=== PATIENT | female | born 1955 | race Caucasian/White ===

== ENCOUNTER 2019-02-05 01:24 | Outpatient (CLI) | payer MEDICARE, SELFPAY ==
[2019-02-05 10:28] LABS: Anion Gap 5.4 mmol/L (3-11); BUN 25 mg/dL (7-18); CO2 32.6 mmol/L (21.0-32.0); CREATININE 0.92 mg/dL (0.55-1.02); Chloride 101 mmol/L (98-107); Glucose 99 mg/dL (70-100); Potassium 4.1 mmol/L (3.5-5.1); Sodium 139 mmol/L (136-145)
== END 2019-02-05 01:44 ==
PROVIDERS: PCP Student in an Organized Health Care Education/Training Program; Visit Provider Otolaryngology
DX: F45.8 Other somatoform disorders (principal); I10 Essential (primary) hypertension
CPT/HCPCS: 36415; 80048; 84443

== ENCOUNTER 2019-08-28 09:24 | Outpatient (CLI) | payer MEDICARE, MEDICAID, SELFPAY ==
--- NOTE | 2019-08-28 09:11 | DI.RAD_ITS ---
EXAM: XR SHOULDER LT COMPLETE 2+V INDICATION: L shoulder pain, h/o RTC surgery. COMPARISON: LEFT SHOULDER COMPLETE from 09/04/2013 TECHNIQUE: 2D digital imaging was performed. FINDINGS: There are mild degenerative changes seen at the acromioclavicular joint and glenohumeral joint. No a cute fracture or dislocation is seen. Soft tissue calcifications are seen adjacent to the greater tu berosity consistent with calcific tendonitis. The soft tissues are otherwise unremarkable. IMPRESSION: Degenerative changes of the left shoulder.
== END 2019-08-28 09:44 ==
PROVIDERS: PCP Student in an Organized Health Care Education/Training Program; Referring Provider Student in an Organized Health Care Education/Training Program; Visit Provider Student in an Organized Health Care Education/Training Program
DX: M25.512 Pain in left shoulder (principal); M19.012 Primary osteoarthritis, left shoulder; M75.32 Calcific tendinitis of left shoulder; G89.29 Other chronic pain; G56.02 Carpal tunnel syndrome, left upper limb
CPT/HCPCS: 99203; 73030

== ENCOUNTER 2019-10-02 01:28 | Outpatient (CLI) | payer MEDICARE, MEDICAID, SELFPAY ==
--- NOTE | 2019-10-02 08:50 | DI.MRI_ITS ---
EXAM: MR UPPER JOINT LT WO CLINICAL HISTORY: continued left shoulder pain after surgery,m25.512H/O SURGERY, DECREASED RANGE OF MOTION TECHNIQUE: Multiplanar multisequence MRI was performed. COMPARISON: XR SHOULDER LT COMPLETE 2+V from 08/28/2019 FINDINGS: There is no significant spurring of the AC joint or impingement. There is some fluid in the subacrom ial subdeltoid bursa. There is a small joint effusion with some apparent loose bodies seen posterior ly. There are degenerative changes of the glenohumeral joint. There is a subchondral cyst in the gl enoid. There is cartilage thinning extending down to bone. There are degenerative changes of the la scarlet but no gross evidence of a labral tear. There is some thickening of the distal supraspinatus te ndon but no evidence of a full-thickness tear. The infraspinatus, subscapularis and biceps tendons a ppear intact. Muscle atrophy. IMPRESSION: 1. Supraspinatus tendinosis. 2. Joint effusion with loose bodies. 3. Degenerative changes of the glenohumeral joint.
== END 2019-10-02 01:48 ==
PROVIDERS: PCP Student in an Organized Health Care Education/Training Program; Visit Provider Physician Assistant
DX: M25.512 Pain in left shoulder (principal); M25.812 Other specified joint disorders, left shoulder; M75.82 Other shoulder lesions, left shoulder; M25.412 Effusion, left shoulder; M19.012 Primary osteoarthritis, left shoulder
CPT/HCPCS: 73221

== ENCOUNTER → 2019-10-12 09:53 | Outpatient (BNVA) | payer MEDICARE, MEDICAID, SELFPAY | PROVIDERS: PCP Student in an Organized Health Care Education/Training Program; Referring Provider Student in an Organized Health Care Education/Training Program; Visit Provider Student in an Organized Health Care Education/Training Program | DX: M19.012 Primary osteoarthritis, left shoulder (principal); M25.512 Pain in left shoulder; G89.29 Other chronic pain | CPT/HCPCS: 99213 ==

== ENCOUNTER → 2019-12-20 13:32 | Outpatient (BNVA) | payer MEDICARE, MEDICAID, SELFPAY | PROVIDERS: PCP Student in an Organized Health Care Education/Training Program; Referring Provider Student in an Organized Health Care Education/Training Program; Visit Provider Student in an Organized Health Care Education/Training Program | DX: M19.012 Primary osteoarthritis, left shoulder (principal); M67.922 Unspecified disorder of synovium and tendon, left upper arm; M75.32 Calcific tendinitis of left shoulder; M75.42 Impingement syndrome of left shoulder; M75.52 Bursitis of left shoulder | CPT/HCPCS: 99215 ==

== ENCOUNTER 2020-01-10 13:23 | Emergency (ER) | payer MEDICARE, MEDICAID, SELFPAY ==
[2020-01-10] VITALS (12 sets, daily range): BP systolic 97–176; BP diastolic 72–104; PULSE 56–77; RESP 15–16; TEMP 36.4–36.6; O2SAT 92–98
--- NOTE | 2020-01-10 13:45 | DI.RAD_ITS ---
EXAM: XR CHEST 2V PA LATERAL CLINICAL HISTORY: L jaw pain, near syncope yesterday TECHNIQUE: 2D digital imaging was performed. COMPARISON: No exams were available for comparison FINDINGS: The cardiac and mediastinal contours have a normal appearance. The lungs are well inflated and clear . No infiltrate, effusion or pneumothorax is seen. No spine or rib fracture is identified. IMPRESSION: Negative chest x-ray.
[2020-01-10] MEDS: Aspirin 81 MG CHEW 324 MG CH (14:05)
[2020-01-10 14:08] LABS: Abs Immature Grans 0.01 k/cumm (0.0-0.09); Absolute Basophil Count 0.01 k/cumm (0.0-0.2); Absolute Eosinophil Count 0.03 k/cumm (0.0-0.7); Absolute Lymphocyte Count 2.27 k/cumm (1.2-3.4); Absolute Monocyte Count 0.29 k/cumm (0.11-0.7); Absolute Neutrophil Count 3.55 k/cumm (1.2-6.7); Basophils % 0.2; Eosinophils % 0.5; HCT 43.3 % (36.0-46.0); HGB 14.5 g/dL (12.0-15.5); Immature Grans % 0.2 %; Lymphocytes % 36.9; Mean Corp. HGB Concentration 33.5 g/dL (32.0-36.0); Mean Corpuscular Hemoglobin 30.8 pg (27.0-33.0); Mean Corpuscular Volume 91.9 fL (80-95); Mean Platelet Volume 9.8 fL (8.0-11.0); Monocytes % 4.7; Neutrophils % 57.5; Platelet Count 227 x1000/uL (130-400); RBC 4.71 m/cumm (4.00-5.20); RBC Distribution Width 12.7 % (11.7-14.6); White Blood Cell Count 6.16 k/cumm (4.4-10.8)
--- NOTE | 2020-01-10 14:13 | ED.GENADUL_ITS ---
Discharge Plan Disposition Patient Disposition: HOME Condition: Stable Discharge Details Chief Complaint: Nausea/Vomit/Diar Clinical Impression: Near syncope Primary Care Provider: Mari Moctezuma ED Provider: Jameel Hu Home Meds and New Rx's Prescriptions: No Action lisinopril 5 mg tablet 5 mg PO DAILY Qty: 90 RF: 3 pediatric multivitamin [Gummi Bear Multivitamin] 1 EACH tablet,chewable 1 ea PO DAILY RF: 0 calcium-vitamin D3-vitamin K 1 EACH tablet,chewable 1 ea PO DAILY RF: 0 epinephrine [EpiPen 2-Femi] 0.3 MG/0.3 ML auto-injector 0.3 mg IM ONCE Qty: 1 RF: 1 alprazolam 0.5 mg tablet 0.5 mg PO ONCE PRN (Reason: procedural anxiety) Qty: 2 RF: 0 celecoxib 200 mg capsule 200 mg PO BID Qty: 60 RF: 6 Discharge Instructions Instructions: Near Syncope (ED) Additional Instructions: At this time your work-up in the ER, including a rapid cardiac rule out, was unremarkable. Upon discharge you are asymptomatic. I was able to discuss the case both with your primary care provider and our local neurology team. We have set you up with a Holter monitor, your primary care office should be calling you tomorrow for prompt outpatient reevaluation, and you will likely then receive a referral to an appointment for outpatient neurology. Please watch for new or worsening symptoms and return immediately to the ER. Medical Decision Making 64-year-old female presenting to the ER today with what sounded like near syncope yesterday now with a left jaw spasm. She currently appears well, nontoxic. She does present to the ER slightly hypertensive however this was trended in the ER without any intervention and came down nicely. Patient denies any chest pain whatsoever. Currently she denies any jaw spasm to me and besides feeling tired she is otherwise asymptomatic. Given her age, presentation, will give a full dose aspirin and obtain a cardiac work-up. Patient currently has no headache, no neck pain, and is neurologically intact. Patient reports ongoing history of headaches which is being worked up as an outpatient. She reports that her jaw was in a spasm, there is no tearing, ripping, burning sensation in her neck. Based upon her evaluation, low suspicion for dissection. I see no clear indication for advanced imaging of the neck or head. I did discuss this with Dr. Holbrook Initial work-up in the ER is unremarkable. EKG, chest x-ray, laboratory values benign. Patient willing to stay in the ER for a repeat EKG and troponin for a rapid cardiac rule out. She remains neurologically intact and is asymptomatic. In the meantime I will reach out to her primary care provider to discuss safe disposition. I was able to speak with Dr. Moctezuma, who apparently has been working the patient up for atypical headaches, does have concern for possible seizure-like activity given her stool incontinence and would like to speak with our hospitalist team as well as our neurology team to discuss the plan. I am currently awaiting a phone call back from her. In the meantime I was actually able to speak with Dr. Kraus who did not feel as though the patient would require admission or emergent EEG. Given her near syncopal episode she recommended setting her up with a Holter monitor and she would be happy to evaluate her as an outpatient. I was able to set the patient up for a outpatie nt Holter monitor. Given her age and history of hypertension, heart score of 3. Repeat EKG performed at 1619. Reveals sinus bradycardia, ventricular rate of 54. No acute ST elevation or depression. No significant changes previous EKG. Repeat troponin unremarkable, no upward trend. Discussed findings with patient and family. Discussed disposition, primary care provider should be reaching out to them tomorrow for prompt outpatient reevaluation. They were instructed to return immediately to the ER for new or evolving symptoms. Upon discharge patient is asymptomatic, neurologically intact, and has no additional questions or concerns Medical Records Medical records reviewed: Yes I reviewed the patient's medical records. Imaging Data Radiologic Study: Attestation: I personally reviewed and interpreted this imaging study as follows: Imaging: X-Ray (Chest x-ray, read by me as negative) Lab Data Lab results reviewed: Yes I reviewed the patient's lab results. Lab results narrative: Laboratory Tests Range/Units 01/10/20 01/10/20 13:40 13:40 WBC (4.4-10.8) k/cumm 6.16 RBC (4.00-5.20) m/cumm 4.71 Hgb (12.0-15.5) g/dL 14.5 Hct (36.0-46.0) % 43.3 MCV (80-95) fL 91.9 MCH (27.0-33.0) pg 30.8 MCHC (32.0-36.0) g/dL 33.5 RDW (11.7-14.6) % 12.7 Plt Count (130-400) x1000/uL 227 MPV (8.0-11.0) fL 9.8 Immature Gran % % 0.2 Neutrophils % 57.5 Lymphocytes % 36.9 Monocytes % 4.7 Eosinophils % 0.5 Basophils % 0.2 Absolute Neutrophils (1.2-6.7) k/cumm 3.55 Absolute Lymphocytes (1.2-3.4) k/cumm 2.27 Absolute Monocytes (0.11-0.7) k/cumm 0.29 Absolute Eosinophils (0.0-0.7) k/cumm 0.03 Absolute Basophils (0.0-0.2) k/cumm 0.01 Sodium (136-145) mmol/L 142 Potassium (3.5-5.1) mmol/L 3.5 Chloride (98-107) mmol/L 102 Carbon Dioxide (21.0-32.0) mmol/L 29.7 Anion Gap (3-11) mmol/L 10.3 BUN (7-18) mg/dL 14 Creatinine (0.55-1.02) mg/dL 0.94 Estimated GFR/1.73 m2 (mL/min/1.73m2) 59.58 Glucose (74-106) mg/dL 109 H Calcium (8.5-10.1) mg/dL 9.1 Magnesium (1.8-2.4) mg/dL 2.0 Total Bilirubin (0.2-1.0) mg/dL 0.6 AST (15-37) U/L 22 ALT (14-59) U/L 31 Alkaline Phosphatase (46-116) U/L 67 Troponin I (<0.06) ng/Ml < 0.05 NT-Pro-B Natriuret Pep (<300) pg/mL 99 Total Protein (6.4-8.2) g/dL 7.8 Albumin (3.4-5.0) g/dL 4.1 Labs: Repeat EKG less than 0.05 ECG Data Attestation: I personally reviewed and interpreted this ECG (s) as follows: Prior ECG tracings: available for review Interpretation: Sinus rhythm, ventricular rate of 67. No acute ST elevation or depression. Reviewed with Dr. Holbrook. Also reviewed to previous EKG on 08-23-15, no significant changes. HPI General Mode of arrival: ambulatory . Date/Time Provider Initiated Documentation: 01/10/20 13:25 . Limitations to Documentation: no limitations . Information obtained by: patient and family . HPI Narrative: 64-year-old female presents to the ER today for evaluation of near syncope yesterday and today with left-sided jaw pain. She has a history of hypertension, chronic left shoulder pain, but is otherwise healthy. She got up yesterday per her usual routine, and upon getting up after drinking coffee to wave goodbye to her she felt what she describes as severe diaphoresis, generalized weakness, falling to the floor. She reports at that time she was incontinent of stool. She denies any true loss of consciousness or any injury from the fall. She reports that at that time she was too weak to stand so she crawled to the bathroom. During this time she felt dizzy although not described like the room was spinning, more like if she was able to stand she may fall over. She also reports nausea at that time with 2 episodes of vomiting. She had no pain whatsoever. Subsequently she went to bed slept most of the day and then upon waking felt drained of all of her energy. She reports several episodes of loose stool but no true diarrhea. Today around 1230 she felt as though she was having a spasm in her left jaw and that is what was the final factor to make her come to the ER. She does not report steady pain or spasm in her left jaw and movement does not make any difference. She has chronic left shoulder pain which is unchanged. Upon further investigation she does report a subtle heaviness to her left arm and maybe even slight tingling in her hand, specifically her fourth and fifth digit. Patient reports a history of semi-frequent, mild headaches and she has had 1 since yesterday. She denies any visual changes, posterior neck pain, chest pain, shortness of breath, abdominal pain, dysuria, hematuria, pain or swelling in her legs. Related Data Home Medications Medication Instructions Recorded Confirmed calcium-vitamin D3-vitamin K 1 ea PO DAILY tab.chew 09/07/13 01/10/20 pediatric multivitamin [Gummi Bear 1 ea PO DAILY tab.chew 09/07/13 01/10/20 Multivitamin] epinephrine [Epipen 2-Femi] 0.3 mg IM ONCE #1 cartridge 01/18/18 01/10/20 lisinopril 5 mg tablet 5 mg PO DAILY #90 tab 02/03/19 01/10/20 alprazolam 0.5 mg tablet 0.5 mg PO ONCE PRN #2 tab 10/18/19 01/10/20 celecoxib 200 mg capsule 200 mg PO BID #60 cap 11/01/19 01/10/20 Previous Rx's Medication Instructions Recorded epinephrine [Epipen 2-Femi] 0.3 mg IM ONCE #1 cartridge 01/18/18 lisinopril 5 mg tablet 5 mg PO DAILY #90 tab 02/03/19 alprazolam 0.5 mg tablet 0.5 mg PO ONCE PRN #2 tab 10/18/19 celecoxib 200 mg capsule 200 mg PO BID #60 cap 11/01/19 Allergies Allergy/AdvReac Type Severity Reaction Status Date / Time codeine Allergy Severe Facial & Unverified 01/10/20 13:33 Oral edema kiwi Allergy Severe Anaphylaxsi Unverified 01/10/20 13:33 s morphine Allergy Severe Edema, Unverified 01/10/20 13:33 Tremor strawberry Allergy Severe Facial & Unverified 01/10/20 13:33 Oral Edema Sulfa (Sulfonamide Allergy Severe Itchy, Unverified 01/10/20 13:33 Antibiotics) facial edema Iodine and Iodide Containing Allergy Unknown Unverified 01/10/20 13:33 Produc Penicillins Allergy Unknown Unverified 01/10/20 13:33 procaine HCl [From Novocain] Allergy Unknown Unverified 01/10/20 13:33 barium sulfate Allergy Unverified 01/10/20 13:33 venom-honey bee Allergy anaphylactic Unverified 01/10/20 13:33 reaction gabapentin AdvReac Severe VOMITING Unverified 01/10/20 13:33 AND SHAKINESS ibuprofen [From Motrin] AdvReac Mild intolerant Unverified 01/10/20 13:33 to 800 mg dosing lobster Allergy Severe Facial \T\ Uncoded 01/10/20 13:33 Oral edema salmon Allergy Severe Swelling/Ed Uncoded 01/10/20 13:33 sydni cheetah Allergy Unknown Anaphylaxsi Uncoded 01/10/20 13:33 s egg albumin AdvReac Severe Uncoded 01/10/20 13:33 General Stated Complaint: Nausea/Vomit/Diar MOR: 3 Review of Systems Constitutional Constitutional: Denies chills, Reports fatigue, Denies fever(s) and Reports headache(s) Eyes Eyes: Denies blurry vision and Denies other visual disturbances ENT Ears, Nose, Mouth, and Throat: Reports dizziness and Reports headache(s) Cardiovascular Cardiovascular: Denies chest pain, Denies leg edema and Denies dyspnea Respiratory Respiratory: Denies cough and Denies dyspnea Gastrointestinal Gastrointestinal: Denies abdominal pain, Reports nausea and Reports vomiting Genitourinary Genitourinary: Denies urinary frequency and Denies dysuria Musculoskeletal Musculoskeletal: Reports back pain (Mild left lower thoracic) and Denies numbness Integumentary/Breasts Skin/Breast: Denies rash Neurologic Neurologic: Reports dizziness, Reports headache(s) and Denies numbness Endocrine Endocrine: Reports fatigue [facility] Medical History DJD (degenerative joint disease) of cervical spine (Acute 10/16/14) Mild cord compression on MRI Fatigue (Acute 08/10/13) FH: breast cancer (Acute 08/10/13) Hand joint pain (Acute 10/03/13) OA vs. RA; hand x-rays 09/2013 Rheum consult 01/18/2014[place] [facility] [place] Inflam erosive arthritis vs. Psoriatic arthritis Irritable colon (Acute 10/03/13) Diarrhea-predominant; stress-induced Left shoulder pain (Acute) S/P arthroscopic rotator cuff [place] [facility] [place] GI bleed (Acute) Surgical History EGD/COLONOSCOPY (09/27/15) DR.CHRIS WILLIS Status post left rotator cuff repair (Acute ~11/2014) Family History Mother No problems noted. Father No problems noted. Social History Smoking/Tobacco Use Status: Former Tobacco Use Alcohol Intake: never Drug use: Never Substance use type: does not use Housing: house Current gender identity: female What type of physical activity do you participate in: occasional exercise and other Details: shoveling Exam Const General: cooperative, healthy appearing, comfortable and no acute distress Orientation: alert and awake HENMT Head: normal to inspection, normocephalic and atraumatic Mouth: moist mucous membranes Eyes General: appearance normal, both eyes and all related structures Conjunctivae: conjunctivae normal Sclera: sclerae normal Pupils: PERRL EOM: EOM intact bilaterally Direct ophthalmoscopy: normal light reflex Neck Neck: normal visual inspection, full ROM, no lymphadenopathy, no meningeal signs, trachea midline, supple and tender (There is mild on the left SCM discomfort to palpation withoout spasm) Lymphatic: no lymphadenopathy noted Resp Effort & Inspection: normal respiratory effort Auscultation: clear to auscultation bilaterally Cardio Rate: regular rate Rhythm: regular rhythm Pulses: normal peripheral pulses GI Inspection: normal to inspection Palpation: soft and nontender Back/Spine/Pelvis Back: no CVA tenderness Cervical Spine: cervical ROM normal and No cervical muscular tenderness Thoracic/Lumbar Spine: thoracic spinal tenderness (Inferior, left-sided, muscular in nature) Skin General skin exam: no rashes or lesions noted Neuro General: alert, awake and oriented x3 Cranial Nerves: CN's II-XI intact bilaterally Cognition: normal cognition Speech: speech normal Gait: normal gait Motor: muscle tone normal throughout Sensory Exam: no sensory deficits noted Extrem General: normal to inspection Psych Appearance: grossly normal Mental Status: mental status grossly normal Course Vital Signs Vital signs: Vital Signs Temperature 36.4 C L 01/10/20 13:29 Pulse 77 01/10/20 13:29 Respiratory Rate 15 01/10/20 13:29 Blood Pressure 176/104 H 01/10/20 13:29 Pulse Oximetry 96 01/10/20 13:29 Temperature 36.4 C L 01/10/20 13:29 Temperature Source Skin 01/10/20 13:29 Pulse 77 01/10/20 13:29 Respiratory Rate 15 01/10/20 13:29 Respiratory Effort Non-Labored 01/10/20 13:29 Blood Pressure 176/104 H 01/10/20 13:29 Pulse Oximetry 96 01/10/20 13:29 Oxygen Delivery Method Room Air 01/10/20 13:29 Oxygen Flow Rate 0 01/10/20 13:29 Pain Level 0 01/10/20 13:29
[2020-01-10 14:30] LABS: ALT 31 U/L (14-59); AST 22 U/L (15-37); Albumin 4.1 g/dL (3.4-5.0); Alkaline Phosphatase 67 U/L (46-116); Anion Gap 10.3 mmol/L (3-11); BUN 14 mg/dL (7-18); Bilirubin, Total 0.6 mg/dL (0.2-1.0); CO2 29.7 mmol/L (21.0-32.0); CREATININE 0.94 mg/dL (0.55-1.02); Calcium 9.1 mg/dL (8.5-10.1); Chloride 102 mmol/L (98-107); Estimated GFR 59.58 (mL/min/1.73m2); Glucose 109 mg/dL (74-106); Potassium 3.5 mmol/L (3.5-5.1); Sodium 142 mmol/L (136-145); Total Protein 7.8 g/dL (6.4-8.2)
[2020-01-10 14:43] LABS: Troponin I < 0.05 ng/Ml (<0.06)
[2020-01-10 15:03] LABS: NT-proBNP 99 pg/mL (<300)
[2020-01-10 16:42] LABS: Troponin I < 0.05 ng/Ml (<0.06)
== END 2020-01-10 17:10 | disposition home or self-care (01) ==
PROVIDERS: Emergency Provider Physician Assistant; PCP Student in an Organized Health Care Education/Training Program
DX: R55 Syncope and collapse (principal); R68.84 Jaw pain; R15.9 Full incontinence of feces; R53.1 Weakness; R11.2 Nausea with vomiting, unspecified; I10 Essential (primary) hypertension
CPT/HCPCS: 36415; 80053; 93005; 99285; 71046; 83735; 83880; 84484; 85025; 93010; 93225

== ENCOUNTER 2020-01-15 14:50 | Outpatient (CLI) | payer MEDICARE, MEDICAID, SELFPAY ==
--- NOTE | 2020-01-16 08:42 | W.HOLTRPT ---
Date of service: 01/16/20 Time of Service: 08:42 Holter Monitor Report Holter Monitor Note: Patient was monitored for a period of 2 days 1 hour and 17 minutes for a diagnosis of near syncope The rhythm throughout was sinus. Mean heart rate was 62 bpm. Minimum heart rate was 48 bpm and maximum heart rate 113 bpm. There was no bradycardia There were very rare ventricular ectopic beats There were very rare atrial premature beats There were 9 runs of premature atrial contractions. The longest of these was 13 beats in length. These were asymptomatic Patient triggers correlated to atrial and ventricular ectopic beats
== END 2020-01-15 15:10 ==
PROVIDERS: PCP Student in an Organized Health Care Education/Training Program; Visit Provider Student in an Organized Health Care Education/Training Program
DX: R55 Syncope and collapse (principal); I49.3 Ventricular premature depolarization; I49.1 Atrial premature depolarization
CPT/HCPCS: 93226

== ENCOUNTER 2020-01-16 02:08 | Outpatient (CLI) | payer MEDICARE, MEDICAID, SELFPAY ==
--- NOTE | 2020-01-16 14:45 | DI.CT_ITS ---
EXAM: CT UPPER EXTREMITY LT WO CLINICAL HISTORY: LEFT SHOULDER ARTHRITIS WITH GLENOID BONE LOSS,M75.32,M19.012, PRIMARY OA, CALCIFI C TENDINITIS COMPARISON: No exams were available for comparison FINDINGS: At the glenohumeral joint, there is joint space narrowing. A small osteophyte arises from the kanwal l head. Subchondral cyst and sclerosis is present in the glenoid. There are calcifications in the s oft tissues adjacent to the humeral head consistent with calcific tendinitis. The soft tissues are u nremarkable. IMPRESSION: Degenerative changes of the left shoulder.
== END 2020-01-16 02:28 ==
PROVIDERS: PCP Student in an Organized Health Care Education/Training Program; Visit Provider Student in an Organized Health Care Education/Training Program
DX: M25.512 Pain in left shoulder (principal); M75.32 Calcific tendinitis of left shoulder; M19.012 Primary osteoarthritis, left shoulder; M85.412 Solitary bone cyst, left shoulder; R55 Syncope and collapse; I49.3 Ventricular premature depolarization; I49.1 Atrial premature depolarization
CPT/HCPCS: 93227; 73200

== ENCOUNTER 2020-01-24 02:20 | Outpatient (CLI) | payer MEDICARE, MEDICAID, SELFPAY ==
--- NOTE | 2020-02-09 08:23 | W.ZIOMONITOR ---
Date of service: 02/09/20 Time of Service: 08:24 ZIO Patch Storage Architect Note: This is a 2-week ZIO patch ordered for the indication of syncope and collapse. The predominant underlying rhythm was sinus rhythm. ?There were 32 episodes of supraventricular tachycardia with the longest lasting 13 beats. The average heart rate during these episodes was 110 bpm. ?There were rare (less than 1%) isolated ventricular ectopic beats. There were rare episodes of trigeminy with the longest lasting 8 seconds. ?There were no episodes of atrial fibrillation, no pauses greater than 3 seconds and no evidence of high degree heart block. ?Patient triggered events were associated with supraventricular tachycardia, sinus rhythm as well as single ventricular ectopic beats
== END 2020-01-24 02:40 ==
PROVIDERS: PCP Student in an Organized Health Care Education/Training Program; Visit Provider Student in an Organized Health Care Education/Training Program
DX: R55 Syncope and collapse (principal); I49.1 Atrial premature depolarization; I49.3 Ventricular premature depolarization
CPT/HCPCS: 0296T

== ENCOUNTER → 2020-02-06 10:33 | Outpatient (BNVA) | payer MEDICARE, MEDICAID, SELFPAY | PROVIDERS: PCP Student in an Organized Health Care Education/Training Program; Referring Provider Student in an Organized Health Care Education/Training Program; Visit Provider Student in an Organized Health Care Education/Training Program | DX: M85.612 Other cyst of bone, left shoulder (principal); M75.42 Impingement syndrome of left shoulder; M75.52 Bursitis of left shoulder; M19.012 Primary osteoarthritis, left shoulder; M67.922 Unspecified disorder of synovium and tendon, left upper arm; M75.32 Calcific tendinitis of left shoulder | CPT/HCPCS: 99214 ==

== ENCOUNTER 2020-02-09 08:23 | Outpatient (CLI) | payer MEDICARE, SELFPAY | END 2020-02-09 08:43 | PROVIDERS: PCP Student in an Organized Health Care Education/Training Program; Referring Provider Student in an Organized Health Care Education/Training Program; Visit Provider Internal Medicine Cardiovascular Disease | DX: R55 Syncope and collapse (principal); I49.1 Atrial premature depolarization; I49.3 Ventricular premature depolarization | CPT/HCPCS: 0298T ==

== ENCOUNTER → 2020-02-16 13:00 | Outpatient (BNVA) | payer MEDICARE, MEDICAID, SELFPAY | PROVIDERS: PCP Student in an Organized Health Care Education/Training Program; Referring Provider Student in an Organized Health Care Education/Training Program; Visit Provider Internal Medicine Cardiovascular Disease | DX: R55 Syncope and collapse (principal); I49.1 Atrial premature depolarization; I47.1 Supraventricular tachycardia | CPT/HCPCS: 99203; 99213 ==

== ENCOUNTER → 2020-04-08 10:58 | Outpatient (BNVA) | payer MEDICARE, MEDICAID, SELFPAY | PROVIDERS: PCP Student in an Organized Health Care Education/Training Program; Referring Provider Student in an Organized Health Care Education/Training Program; Visit Provider Student in an Organized Health Care Education/Training Program | DX: M75.42 Impingement syndrome of left shoulder (principal); M75.52 Bursitis of left shoulder; M19.012 Primary osteoarthritis, left shoulder; M67.922 Unspecified disorder of synovium and tendon, left upper arm; M75.32 Calcific tendinitis of left shoulder | CPT/HCPCS: 99215 ==

== ENCOUNTER 2020-04-25 02:05 | Outpatient (CLI) | payer MEDICARE, MEDICAID, SELFPAY ==
--- NOTE | 2020-04-25 07:34 | DI.US_ITS ---
APPROVED REPORT EXAM: Comprehensive 2D, Doppler, and color-flow Echocardiogram Patient Location: Out-Patient Education Professor: Liz Pena RDCS (AE) Indications: SVT, Syncope Other Information Study Quality: Fair Conclusion Left Ventricle : The left ventricle is normal size. The left ventricular systolic function is normal. The left ventricular ejection fraction is within the normal range. There is normal left ventricular wall thickness. There is normal LV segmental wall motion. The left ventricular diastolic function is normal. LVEF is 55%. Right Ventricle : The right ventricle is normal size. The right ventricular systolic function is norm al. The RVSP is 12mmHg. Atria : The left atrium size is normal. The right atrium size is normal. Valves: There are no hemodynamically significant valvular lesions. Please see remainder of study for additional details. Compared to echocardiogram dated 04/19/2015: There is no significant change. Wall motion Left Ventricle The left ventricle is normal size. The left ventricular systolic function is normal. The left ventric ular ejection fraction is within the normal range. There is normal left ventricular wall thickness. T here is normal LV segmental wall motion. The left ventricular diastolic function is normal. There is no ventricular septal defect visualized. LVEF is 55%. Right Ventricle The right ventricle is normal size. The right ventricular systolic function is normal. The RVSP is 12 .3mmHg. Atria The left atrium size is normal. The right atrium size is normal. The interatrial septum is intact wit h no evidence for an atrial septal defect. Aortic Valve Aortic valve is trileaflet. The Aortic valve is sclerotic. There is no aortic valvular stenosis. No a ortic regurgitation is present. Mitral Valve There is mitral annular calcification. No evidence of mitral valve stenosis. Trace to mild mitral reg urgitation. Tricuspid Valve The tricuspid valve is normal in structure. There is no tricuspid valve stenosis. Trace tricuspid reg urgitation. Pulmonic Valve The pulmonary valve is normal in structure. There is no pulmonic valvular stenosis. Trace pulmonic re gurgitation. Great Vessels The aortic root is normal in size. The ascending aorta is normal in size. Aortic arch is normal in ca liber. IVC is normal in size and collapses >50% with inspiration. Pericardium There is no pericardial effusion. There is no pleural effusion. 2D Dimensions IVSD d PLAX 0.97 cm F: 0.6-1.0 LV Vol A2C d MOD 86.0 mL LVPW d PLAX 0.98 cm F: 0.6 - 1.0 LV Vol A4C d MOD 76.7 mL LVID d PLAX 4.41 cm F: 3.8 - 5.2 LA vol/ BSA A2C s A-L 32.5 mL/m2 LVDs 2.90 cm F: 2.2 - 3.5 LA vol/ BSA A4C s A-L 27.8 mL/m2 Ao Root d 2.84 cm F: 2.7 - 3.3 LA Vol/ BSA Biplane s A-L 30.1 mL/m2 RA Area A4C 14.08 cm2 LA Area A4C s MOD 18.11 cm2 RA Vol/ BSA A4C s A-L 18.5 mL/m2 LA Area A2C s MOD 19.54 cm2 Ao Asc Diam d 3.20 cm F: 2.3 - 3.1 LV EF A4C MOD 58.5 % LV EF Teichholz 62.5 % LV EF A2C MOD 54.9 % LVEF (Jenkins's) 57.92 % F: 54 - 74 LV EF Biplane MOD 57.9 % LV Volume 65.09 mL F: 46 - 106 SV 48.90 mL LV Volume Index 35.37 mL/m2 F: 29 - 61 SV Index 26.49 mL/m2 LV Vol Biplane MOD 84.4 mL FS 33.55 % M-Mode TAPSE 3.09 cm (M/F) >1.7 LV Diastology MV E' medial 0.099 (>0.07 m/s) E/A Ratio 1.1 LV E/e MED 8.35 (<14) MV E Vmax 0.83 (0.4-1.3 m/s) MV E' lateral 0.132 (>0.1 m/s) MV A Vmax 0.75 (0.4-1.3 m/s) LV E/e LAT 6.25 (<14) MV E/A Ratio 1.05 MV E/E' medial 8.40 MV E/E' lateral 6.30 Aortic Valve LVOT Vmax 1.25 m/s LVOT Mean Geo. 0.82 m/s LVOT Peak Grad 6.2 mmHg LVOT Mean Grad 3.2 mmHg LVOT VTI 0.300 m AoV Vmax 1.52 m/s Velocity Ratio 0.82 AoV Mean Geo. 1.06 m/s AoV Peak Grad 9.2 mmHg AoV Mean Grad 5.1 mmHg AoV VTI 0.330 m Mitral Valve MV DT 207 (160-240 msec) MV PHT 60 msec MV Area PHT 3.66 cm2 Pulmonary Valve PV Vmax 0.92 (0.5-1.5 m/s) RVOT Peak Gr. 1.09 mmHg PV Peak Grad 3.4 mmHg RVOT Mean Gr. 0.45 mmHg PV Mean Grad 1.8 mmHg RVOT VTI 0.090 m PV VTI 0.207 m RVOT Vmax 0.52 m/s Tricuspid Valve TR Peak Grad 9.3 mmHg TR Vmax 1.53 m/s RA Pressure 3.00 mmHg RVSP (TR) 12.3 mmHg
== END 2020-04-25 02:25 ==
PROVIDERS: PCP Student in an Organized Health Care Education/Training Program; Visit Provider Internal Medicine Cardiovascular Disease
DX: I47.1 Supraventricular tachycardia (principal); R55 Syncope and collapse; I10 Essential (primary) hypertension
CPT/HCPCS: 93306

== ENCOUNTER 2020-04-30 08:07 | Outpatient (CLI) | payer MEDICARE, SELFPAY ==
[2020-05-01 03:23] LABS: COVID-19 RT-PCR UVMMC Result Negative (Negative)
== END 2020-04-30 08:27 ==
PROVIDERS: PCP Student in an Organized Health Care Education/Training Program; Visit Provider Student in an Organized Health Care Education/Training Program
DX: Z11.59 Encounter for screening for other viral diseases (principal)
CPT/HCPCS: U0003

== ENCOUNTER 2020-05-03 07:40 | Day surgery (SDC) | payer MEDICARE, MEDICAID, SELFPAY ==
[2020-05-03] VITALS (8 sets, daily range): BP systolic 111–145; BP diastolic 67–79; PULSE 61–103; RESP 17–21; TEMP 36.4–36.7; O2SAT 94–97
[2020-05-03] MEDS: Lactated Ringers 1,000 ML 100 ML IV (08:17)
--- NOTE | 2020-05-03 10:00 | DI.RAD_ITS ---
EXAM: XR SHOULDER LT 1V XR SHOULDER LT 1V CLINICAL HISTORY: LEFT SHOULDER ARTHRITIS TECHNIQUE: C-arm fluoroscopy was utilized by Dr. Booker during shoulder arthroscopy. COMPARISON: No exams were available for comparison FINDINGS: Please see Dr. Booker's procedure note. Fluoro time: 45.7 seconds.
--- NOTE | 2020-05-03 10:11 | W.PM.DSUDISC ---
Discharge Plan Disposition Patient Disposition: HOME Condition: Stable Discharge Details Reason For Visit: Left shoulder surgery Attending Provider: Cullen Booker Primary Care Provider: Mari Moctezuma Home Meds and New Rx's Prescriptions: New aspirin 81 mg tablet,delayed release (DR/EC) 81 mg PO DAILY 14 Days Qty: 14 RF: 0 ondansetron 4 mg tablet,disintegrating 4 mg PO Q6H PRN (Reason: nausea or vomiting) Qty: 5 RF: 0 oxycodone 5 mg tablet 5 - 10 mg PO Q4H PRN (Reason: moderate to severe pain) Qty: 22 RF: 0 celecoxib 200 mg capsule 200 mg PO DAILY PRN (Reason: pain) Qty: 90 RF: 0 Continued lisinopril 5 mg tablet 5 mg PO DAILY Qty: 90 RF: 3 epinephrine [EpiPen 2-Femi] 0.3 mg/0.3 mL auto-injector 0.3 mg IM ONCE Qty: 1 RF: 1 celecoxib 200 mg capsule 200 mg PO BID Qty: 60 RF: 6 Discharge Instructions Additional Instructions: Surgery: Revision shoulder arthroscopy with extensive debridement, subacromial decompression, distal clavicle excision, biceps tenodesis, and bone cyst drilling Activity: You should gradually increase range of motion motion and use of your shoulder. Please perform daily stretching exercises. You may use your shoulder for all regular activities. Avoid heavy lifting, reaching overhead, and lifting away from body for approximately 6 to 8 weeks. You may use the sling whenever you are out of the house for a few weeks. You may have to adjust the abduction pillow or remove it for comfort. At home it is best to remove the sling and rest the arm on a pillow at your side or support the operative side with your other hand. You may allow the arm to dangle at your side. A physical therapy prescription will be provided separately today. Prescriptions: Aspirin 81 mg take 1 daily to prevent a blood clot for 2 weeks Celecoxib 200 mg take 1 every day with a meal as needed for moderate pain Oxycodone 5 mg take 1-2 every 4-6 hours as needed for severe pain Ondansetron (Zofran) 4 mg take 1 orally dissolving tablet every 6 hours as needed for nausea or vomiting You may use [id number] Tylenol (acetaminophen) as needed for mild pain. These pain medications may be taken all at once or in different combinations as needed. Also, recommend Colace (docusate) as a stool softener as surgery and pain medicine cause constipation. Dressings: Leave dressing in place for 2-3 days. May then remove and leave open to air or cover incisions with Band-Aids. May shower after 5 days. Follow-up: 10-[address] Booker Please call the office during business hours with any questions or concerns. Let us know right away if you develop any redness, drainage, fevers, chest pain, or trouble breathing. Do not drink alcohol or drive for at least 24 hours after anesthesia. Referrals: Cullen Booker MD [ [facility] STAFF PHYSICIAN] - Discharge Orders Discharge Orders: Discharge Order (Routine); Ordered 05/03/20 Ordered By: Cullen Booker DS: Diagnosis Discharge Diagnosis (1) Calcific tendinitis of left shoulder: Status: Acute (2) Tendinopathy of left biceps: Status: Acute (3) Arthrosis of left acromioclavicular joint: Status: Acute (4) Bursitis of left shoulder: Status: Acute (5) Impingement syndrome of left shoulder: Status: Acute
--- NOTE | 2020-05-03 10:15 | ROE_ITS ---
Date of service: 05/03/20 Time of Service: 12:00 Operative Note Operative Note DATE OF PROCEDURE: 05/03/20 PRE-OP DIAGNOSIS: Left: 1. Calcific tendinitis failed prior supraspinatus debridement and repair 2. LHB tendinopathy failed prior arthroscopic biceps tenodesis 3. AC joint arthritis failed prior open distal clavicle excision 4. Bursitis 5. Impingement 6. Glenoid subchondral bone cyst POST-OP DIAGNOSIS: same PROCEDURE: Left: 1. Extensive debridement, CPT# 38768. This involved using arthroscopic hand instruments, power instruments, and radiofrequency instruments to remove loose bodies from within the glenohumeral joint and axillary pouch, debride areas of labral tearing, synovitis within the glenohumeral joint anteriorly, superiorly and posteriorly, release thickened MGHL, smooth inferior humeral head bone spur, and debride chondromalacia about the bicipital groove and debride loose chondral fragments from the humeral head and glenoid. 2. Revision subacromial decompression with partial acromioplasty, CPT# 96964. This involved using arthroscopic power instruments and a radiofrequency wand to complete a bursectomy and remove residual bone spurs and irregularities on the undersurface of the acromion. 3. Revision arthroscopic biceps tenodesis to open biceps tenodesis, CPT# 41713. This involved releasing a previously done arthroscopic biceps tenodesis and reattaching the long head of the biceps tendon to the proximal humerus in the sub-pectoral area of the bicipital groove at the correct tension. 4. Revision open distal clavicle excision, CPT# 92723. This involved removing residual distal clavicle bone spurs that were engaging on the acromion and prominent beneath the skin. 5. Percutaneous drilling glenoid bone cyst The assistant professor sculpture was medically required in order to help assist in techniques above, which require positioning the arm, holding the arthroscope, and manipulating 2 to 4 instruments and sutures at the same time. This cannot be done without the help of an experienced assistant professor sculpture. SURGEON: Cullen Booker PIN MACHINE TENDER: Iram Hernandez ANESTHESIA: GETA, regional and local ESTIMATED BLOOD LOSS: 15 PATHOLOGY: none sent COMPLICATIONS: None Patient was transported to: PACU Patient's condition: stable Implants: Arthrex: Unicortical Proximal Biceps Tenodesis Button Indications: The patient was diagnosed with the above conditions and appropriately indicated for surgical intervention. Please see complete medical record for details. Findings: Exam under anesthesia: Symmetrically mildly limited range of motion of 145 degree forward flexion and 45 degree external rotation Glenohumeral joint: Extensive synovitis, degenerative labral tearing, and chondromalacia grade 2-3 throughout anteriorly, superiorly, posteriorly and the majority of the humeral head and glenoid vault. Most significant cartilage wear grade 3 fissuring about the bicipital groove and central glenoid. Superior capsular disruption above the superior labrum. No intra-articular long head of the biceps tendon, but unusual remnant in the groove. Small inferior humeral head goat's smith osteophyte. Numerous loose bodies in the glenohumeral joint and axillary pouch presumably chondral fragments. Thickened MGHL ligament. Minor anterior supraspinatus articular sided fraying. Largely intact articular rotator cuff however calcium deposition visualized on the undersurface of supraspinatus and infraspinatus. Could not identify previous biceps tendon anchor junction with 30 degree or 70 degree scope from anterior or posterior portals. Subacromial space: Moderate bursitis. Residual undersurface acromion irregularity and anterior bone spurs Significant residual calcific tendinitis thin layer on top of large area of the supraspinatus. Significant supraspinatus bursal fraying but no nick bursal rotator cuff tear. Prior side to side repair suture intact and tendon healed. Procedure Description: In the operating room, general anesthesia was induced. Bilateral shoulders were examined. The patient was positioned in the beachchair position. All bony prominences were well-padded. Preoperative antibiotics were administered. The shoulder was prepped and draped in the usual sterile fashion. The correct patient, procedure, and side of the procedure were all verified prior to incision. Starting through the prior posterior portal a standard complete diagnostic arthroscopy was performed of the glenohumeral joint including inspection of the long head of the biceps, anterior and superior labrum, subscapularis tendon, supraspinatus and infraspinatus tendons, and axillary recess. The glenoid and humeral head cartilage as well as the posterior labrum were inspected from a prior anterior viewing portal. Significant findings and interventions noted above. In addition, a posterior lateral portal was made under direct visualization and a half pipe slide was maintained inferiorly to protect the axillary nerve. Shaver was brought in this border and while viewing from posteriorly the axillary pouch loose bodies were removed. The arm was brought into extension, external rotation and internal rotation and there was a mild inferior humeral head goats smith type osteophyte. This was smoothed and removed using the shaver again while protecting the axillary nerve with a sled. Starting through the posterior portal, the arthroscope was directed into the s ubacromial space. A prior lateral 50 yard line lateral portal was created. A combination of power instruments and a radiofrequency ablator were used to debride bursitis anteriorly, posteriorly, and laterally as well as expose and smooth bone spurring on the undersurface of the acromion. The coracoacromial ligament was partially released. The bursectomy including removal of residual calcium debris and bursal sided rotator cuff fraying was completed viewing laterally and working from posteriorly and the rotator cuff was thoroughly inspected with findings noted above. The shoulder was drained of arthroscopic fluid. Previous transverse distal clavicle incision was used to approach distal clavicle. Full-thickness skin and subcutaneous tissue flaps were used and raised for the planned mobilizing soft tissues for better distal clavicle coverage. The fascia and superior capsule were found to be intact. There was palpable prominence on the end of the clavicle, slightly medially, and po steriorly. Longitudinal full-thickness approach with knife Bovie cautery and elevators was made exposing the distal clavicle. There was engaging bone most posteriorly. Using a combination of rasps and files the distal clavicle was smoothed and the posterior engaging bone removed. There were no more palpable prominences. The wound was copiously irrigated with normal saline. The fascia was meticulously closed with 0 Vicryl in [id number]-[id number]-tqrug fashion. There was good tissue quality. The wound was irrigated again. Deep tissues that were previously mobilized were closed using 2-0 Monocryl in a buried interrupted fashion in an attempt to improve soft tissue coverage over the distal clavicle. There was good soft tissue coverage. Subcutaneous tissues were closed using 2-0 Monocryl in a buried and fashion. Skin was closed using 3-0 Monocryl in a buried subcuticular running fashion. 10 cc of 0.5% bupivacaine with epinephrine was infiltrated about a 2 to 3 cm longitudinal incision at the inferior margin of the pectoralis major localized over the long head of the biceps tendon. Blunt and sharp dissection were used to expose the tendon in the bicipital groove. #2 FiberWire was used to tag the tendon at the appropriate level in length for fixation in the groove. Blunt and digital dissection was used to follow the biceps tendon up to its more superior prior arthroscopic point of fixation. It was unable to be released bluntly. Carefully, arthroscopic scissors were used to follow the path of the tendon with digital retraction protecting adjacent structures and the long head of the biceps tendon was released. Tendon was brought out of the wound and kept off the skin on top of a blue towel. The correct location for sub-pectoral fixation was localized, prepped with a rasp, and then drilled with a 3.2 mm drill pin in a unicortical fashion. Using a fiber loop suture the tendon was prepped from the musculotendinous junction a few centimeters proximal. The provisional #2 FiberWire was removed. The free suture ends were then passed through the unicortical button implant. The drill pin was removed and the implant was placed into the humeral intramedullary canal. The button was flipped and the sutures were tensioned bringing the tendon down to bone. Tension and fixation were then tested and found to be appropriate. A free needle was used to pass suture through the tendon and the free ends of the suture were were tied compressing tendon to the humerus. The wound was copiously irrigated with normal saline. Subcutaneous tissue was closed using 3-0 Monocryl in a buried interrupted fashion. Skin was closed using 3-0 Monocryl in a buried subcuticular running fashion. Skin glue was applied over the incision. Mastisol was applied about the incision. The incision was covered with Telfa, gauze, and covered with a Tegaderm dressing. All portal sites were copiously irrigated. These incisions were closed using 3- 0 Monocryl in a buried fashion, covered with Mastisol and Steri-Strips. C arm fluoroscopy was brought in and true AP views obtained of the glenohumeral joint. The glenoid bone cyst identified. A 2 mm K wire was placed through posterior portal skin incision and directed collinear with the glenohumeral joint and advanced by hand down to posterior scapula bone. C-arm confirmed appropriate start point. Power utility driver was then used to advance the wire through the cortex. There was a palpable loss of resistance, the wire inserted further, and stopped when meeting next resistance at the anterior scapula cortex. Attempted axillary and scapular Y views while in the beachchair position were not ideal but combined with an excellent true AP view and digital palpable confirmation of the wires present in the bone cyst with uses assurance to proceed. The wire was then manually redirected about the bone cyst and the tip used to agitate scrape and disrupt the cyst oquendo inferiorly superiorly and medially. Care was taken not to direct the wire laterally so as to avoid joint penetration. Xeroform, dry gauze, and ABDs were then applied over the shoulder incisions. The dressings were covered and secured with Medipore tape. The operative extremity was placed into a sling for immobilization. The patient awoke from anesthesia without complication and was transferred to the recovery room in a stable condition.
[2020-05-03] MEDS: CLINDAMYCIN 900 MG/50 ML BAG 50 MG IVPB (10:22)
[2020-05-03] MEDS: EPINEPHrine 30 MG/30 ML VIAL (11:24)
== END 2020-05-03 17:25 | disposition home or self-care (01) ==
PROVIDERS: PCP Student in an Organized Health Care Education/Training Program; Visit Provider Student in an Organized Health Care Education/Training Program
PROC: (CPT 29805; principal; 2020-05-03 09:00)
PROC: (CPT 23430; 2020-05-03 09:00)
PROC: (CPT 23120; 2020-05-03 09:00)
DX: M75.32 Calcific tendinitis of left shoulder (principal); M19.012 Primary osteoarthritis, left shoulder; M75.52 Bursitis of left shoulder; M75.42 Impingement syndrome of left shoulder; M75.22 Bicipital tendinitis, left shoulder; M85.412 Solitary bone cyst, left shoulder; G89.18 Other acute postprocedural pain; M24.812 Other specific joint derangements of left shoulder, not elsewhere classified; M94.212 Chondromalacia, left shoulder; M25.512 Pain in left shoulder
CPT/HCPCS: 23430; 29823; 23120; 29826; 76942; L3670; 73020; J0131; J1100; J2001; J2370; J2405; J2704; J3010

== ENCOUNTER → 2020-05-15 09:47 | Outpatient (BNVA) | payer MEDICARE, SELFPAY | PROVIDERS: PCP Student in an Organized Health Care Education/Training Program; Referring Provider Student in an Organized Health Care Education/Training Program; Visit Provider Student in an Organized Health Care Education/Training Program | DX: Z47.89 Encounter for other orthopedic aftercare (principal); M75.42 Impingement syndrome of left shoulder; M75.52 Bursitis of left shoulder; M19.012 Primary osteoarthritis, left shoulder; M67.922 Unspecified disorder of synovium and tendon, left upper arm; M75.32 Calcific tendinitis of left shoulder ==

== ENCOUNTER → 2020-07-09 08:27 | Outpatient (BNVA) | payer MEDICARE, SELFPAY | PROVIDERS: PCP Student in an Organized Health Care Education/Training Program; Referring Provider Student in an Organized Health Care Education/Training Program; Visit Provider Student in an Organized Health Care Education/Training Program | DX: Z47.89 Encounter for other orthopedic aftercare (principal); M75.42 Impingement syndrome of left shoulder; M75.32 Calcific tendinitis of left shoulder; M67.922 Unspecified disorder of synovium and tendon, left upper arm; M19.012 Primary osteoarthritis, left shoulder; M75.52 Bursitis of left shoulder ==

== ENCOUNTER → 2020-10-01 08:02 | Outpatient (BNVA) | payer MEDICARE, MEDICAID, SELFPAY | PROVIDERS: PCP Student in an Organized Health Care Education/Training Program; Referring Provider Student in an Organized Health Care Education/Training Program; Visit Provider Student in an Organized Health Care Education/Training Program | DX: M75.42 Impingement syndrome of left shoulder (principal); M75.52 Bursitis of left shoulder; M19.012 Primary osteoarthritis, left shoulder; M67.922 Unspecified disorder of synovium and tendon, left upper arm; M75.32 Calcific tendinitis of left shoulder | CPT/HCPCS: 99213 ==

== ENCOUNTER 2021-01-22 01:34 | Outpatient (CLI) | payer MEDICARE, MEDICAID, SELFPAY ==
--- NOTE | 2021-01-22 06:30 | DI.MAMMO_ITS ---
EXAM: MG MAMMO SCREENING CLINICAL HISTORY: screening,Z12.39. TECHNIQUE: Bilateral full field digital CC and MLO mammographic images were obtained with 3D tomosyn thesis and utilizing computer aided detection (CAD). COMPARISON: Prior mammogram of 2013 was reviewed. There are no interval mammograms. There is a sig nificant family history. This patient's mother and sister both diagnosed with breast cancer. Her si ster at age 45. Her mother was diagnosed in her 60s. Apparently this patient feels a possible lump in the right breast. She has not yet informed her provider. Skin marker was placed over this area. FINDINGS: There are no CAD designations. There has been no significant change in the appearance and distribution of fibroglandular tissue. There are no new spiculated masses nor malignant appearing microcalcification groups. No new findings in the vicinity of this skin marker in the right breast. There is no significant architectural dist ortion nor skin thickening-retraction. IMPRESSION: No radiographic evidence of malignancy. However, given that this patient apparently has a palpable mario mp in the right breast (and very strong family history) Ultrasound examination is recommended BI-RADS Category 0 - Assessment Incomplete: Need additional imaging evaluation Breast Density - Category C - Heterogeneously dense Breast density Category C or D implies that the patient has dense breast tissue. Dense breast tissue can make it harder to find cancer on a mammogram. Dense breast tissue is also associated with an incr eased risk of breast cancer. This information about the result of the mammogram report was provided to the patient to raise their awareness. Use this report when you speak with the patient about their risks for breast cancer, which includes their family history. At that time, you may recommend additional screening tests (Ultrasoun d or MRI) as these tests may add significant information. A negative radiographic report should not delay biopsy if a dominant or clinically suspicious mass is present. Up to ten percent of cancers are not identified on mammography. A negative report may reinforce clinical impression. Adenosis and dense breasts may obscure an underlying neoplasm. False positive reports average 6 to 10%. Patient will receive a letter notifying them of these results.
== END 2021-01-22 01:35 ==
LOC: DI 01:35
PROVIDERS: PCP Student in an Organized Health Care Education/Training Program; Visit Provider Student in an Organized Health Care Education/Training Program
DX: Z12.31 Encounter for screening mammogram for malignant neoplasm of breast (principal); R92.8 Other abnormal and inconclusive findings on diagnostic imaging of breast; N63.10 Unspecified lump in the right breast, unspecified quadrant; Z80.3 Family history of malignant neoplasm of breast
CPT/HCPCS: 77063; 77067

== ENCOUNTER 2021-01-27 02:33 | Outpatient (CLI) | payer MEDICARE, MEDICAID, SELFPAY ==
--- NOTE | 2021-01-27 | DI.US_ITS ---
EXAM: US BREAST RT LIMITED CLINICAL HISTORY: F/U MAMMO,INCONCLUSIVE FINDINGS, PALPABLE LUMP, STRONG FAMILY H/O BREAST CA TECHNIQUE: Ultrasound right breast performed using standard protocol. COMPARISON: MG MG MAMMO SCREENING from 01/22/2021 FINDINGS: The upper inner and upper outer quadrants of the right breast were evaluated sonographically. No cys tic or solid masses are present. IMPRESSION: 1. No evidence for malignancy. 2. A negative mammogram and ultrasound should not preclude biopsy of a clinically suspicious mass. 3. Yearly mammography is recommended. 4. Findings were discussed with the patient on the date of the examination. BI-RADS Category 1 - Negative DATA REPOSITORY:
== END 2021-01-27 02:53 ==
PROVIDERS: PCP Student in an Organized Health Care Education/Training Program; Visit Provider Student in an Organized Health Care Education/Training Program
DX: R92.8 Other abnormal and inconclusive findings on diagnostic imaging of breast (principal); Z80.3 Family history of malignant neoplasm of breast
CPT/HCPCS: 76642

== ENCOUNTER 2021-02-11 11:41 | Outpatient (CLI) | payer MEDICARE, MEDICAID, SELFPAY ==
--- NOTE | 2021-02-11 11:30 | DI.RAD_ITS ---
EXAM: XR SHOULDER LT COMPLETE 2+V CLINICAL HISTORY: f/u TECHNIQUE: COMPARISON: CR XR SHOULDER LT COMPLETE 2+V from 08/28/2019 FINDINGS: Two views were obtained. There is moderate narrowing of the cartilaginous joint space the glenohumer al joint. There are prominent marginal osteophytes of the glenohumeral joint. There are subchondral sclerotic and cystic changes glenoid. IMPRESSION: Severe DJD glenohumeral joint. Mild DJD acromioclavicular joint. RADIATION DOSE DELIVERED: Total DLP
== END 2021-02-11 11:42 | disposition home or self-care (01) ==
LOC: DIORS 11:42
PROVIDERS: PCP Student in an Organized Health Care Education/Training Program; Referring Provider Student in an Organized Health Care Education/Training Program; Visit Provider Student in an Organized Health Care Education/Training Program
DX: M19.012 Primary osteoarthritis, left shoulder (principal); M75.42 Impingement syndrome of left shoulder; M75.52 Bursitis of left shoulder; M67.922 Unspecified disorder of synovium and tendon, left upper arm; M75.32 Calcific tendinitis of left shoulder
CPT/HCPCS: 99213; 73030

== ENCOUNTER 2023-05-27 02:19 | Outpatient (CLI) | payer MEDICARE, MEDICAID, SELFPAY ==
--- NOTE | 2023-05-27 08:05 | DI.MAMMO_ITS ---
Exam(s) MAMMO SCREENING EXAM: MAMMO SCREENING CLINICAL HISTORY: screening,z12.39 TECHNIQUE: Mammograms were interpreted according to the usual protocol including computer analysis w [employer] CAD system, tomosynthesis and C-view imaging. COMPARISON: 2013 through 2020 FINDINGS: The breasts are composed of scattered fibroglandular densities, Breast Density category B. No suspicious masses or suspicious microcalcifications are seen. No skin thickening or abnormal axillary lymph nodes are seen. There has been no significant change from prior exams. IMPRESSION: BI-RADS Category 1, Negative mammogram Yearly screening mammography is recommended. Breast Density - Category B, scattered fibroglandular densities. A negative radiographic report should not delay biopsy if a dominant or clinically suspicious mass is present. Up to ten percent of cancers are not identified on mammography. A negative report may reinforce clinical impression. Adenosis and dense breasts may obscure an underlying neoplasm. False positive reports average 6 to 10%. Patient will receive a letter notifying them of these results.
== END 2023-05-27 02:39 ==
LOC: DI 02:19
PROVIDERS: PCP Student in an Organized Health Care Education/Training Program; Visit Provider Student in an Organized Health Care Education/Training Program
DX: Z12.31 Encounter for screening mammogram for malignant neoplasm of breast (principal)
CPT/HCPCS: 77063; 77067

== ENCOUNTER 2023-05-27 04:07 | Outpatient (CLI) | payer MEDICARE, MEDICAID, SELFPAY ==
[2023-05-27 07:45] LABS: Abs Immature Grans 0.01 10^3/uL (0.0-0.06); Absolute Basophil Count 0.02 10^3/uL (0.0-0.2); Absolute Eosinophil Count 0.09 10^3/uL (0.0-0.7); Absolute Lymphocyte Count 1.98 10^3/uL (1.2-3.4); Absolute Monocyte Count 0.22 10^3/uL (0.1-0.8); Absolute Neutrophil Count 1.74 10^3/uL (1.2-6.7); Basophils % 0.5; Eosinophils % 2.2; HCT 40.3 % (36.0-46.0); HGB 13.4 g/dL (11.2-15.7); Immature Grans % 0.2; Lymphocytes % 48.8; MCH 30.7 pg (27.0-33.0); MCHC 33.3 % (32.0-36.0); MCV 92 fL (80-95); MPV 9.7 fL (8.0-11.0); Monocytes % 5.4; Neutrophils % 42.9; Platelet Count 205 10^3/uL (130-400); RBC 4.37 10^6/uL (3.93-5.22); RDW 12.5 % (11.7-14.6); RDW-SD 42.1 fL; WBC 4.06 10^3/uL (4.4-10.8)
[2023-05-27 09:25] LABS: ALT 28 U/L (14-59); AST 23 U/L (15-37); Albumin 3.7 g/dL (3.4-5.0); Alkaline Phosphatase 66 U/L (46-116); Anion Gap 6.2 mmol/L (3-11); BUN 22 mg/dL (7-18); Bilirubin, Total 0.5 mg/dL (0.2-1.0); CO2 29.8 mmol/L (21.0-32.0); CREATININE 1.1 mg/dL (0.55-1.02); Calcium 8.8 mg/dL (8.5-10.1); Calculated LDL 156 mg/dL (<100); Chloride 105 mmol/L (98-107); Cholesterol 217 mg/dL (<200); Estimated GFR 54.39 (mL/min/1.73m2); Glucose 108 mg/dL (74-106); HDL Cholesterol 51 mg/dL (40-60); Potassium 4.4 mmol/L (3.5-5.1); Sodium 141 mmol/L (136-145); TSH (W/Ref FT4) 1.92 uIU/mL (0.36-3.74); Total Protein 7.4 g/dL (6.4-8.2); Triglyceride 53 mg/dL (<150)
[2023-05-27 09:43] LABS: Vitamin D 25 Total 32.6 ng/mL (30-100)
== END 2023-05-27 04:08 | disposition home or self-care (01) ==
LOC: LBO 04:07
PROVIDERS: PCP Student in an Organized Health Care Education/Training Program; Visit Provider Student in an Organized Health Care Education/Training Program
DX: Z13.220 Encounter for screening for lipoid disorders (principal); Z87.19 Personal history of other diseases of the digestive system; Z91.89 Other specified personal risk factors, not elsewhere classified; G56.02 Carpal tunnel syndrome, left upper limb; K92.2 Gastrointestinal hemorrhage, unspecified
CPT/HCPCS: 36415; 80053; 80061; 82306; 84443; 85025

== ENCOUNTER 2023-07-08 01:38 | Outpatient (CLI) | payer MEDICARE, MEDICAID, SELFPAY ==
--- NOTE | 2023-07-08 06:15 | DI.DEXA_ITS ---
Exam(s) XR DEXA BONE DENSITY W/WO JOEY EXAM: XR DEXA BONE DENSITY W/WO JOEY CLINICAL HISTORY: screening for osteoporosis in postmenopausal woman,z78.0,at risk for TECHNIQUE: COMPARISON: No exams were available for comparison FINDINGS: Lateral Spine Image: Unremarkable. No compression deformities identified. Left hip: Total T-Score: -1.5 Total Z-Score: 0.0 T- and Z-scores: Findings are consistent with osteopenia. Lumbar Spine: Total T-Score: -2.0 Total Z-Score: 0.1 T- and Z-scores: Findings are consistent with osteopenia. IMPRESSION: No evidence of osteoporosis.
--- NOTE | 2023-07-08 08:55 | DI.CTLCSR_ITS ---
Exam(s) CT CHEST LUNG CANCER SCREEN EXAM: CT CHEST LUNG CANCER SCREEN CLINICAL HISTORY: Screening for lung cancer,former smoker, z87.891 TECHNIQUE: Imaging Protocol: Axial computed tomography images with coronal and sagittal reformatted images were created and reviewed COMPARISON: CT ABD PELVIS WITH CONTRAST from 08/23/2015 FINDINGS: Tracheobronchial tree: Patent where visualized. Pulmonary parenchyma: No focal consolidating infiltrates are seen. Ground-glass opacities are seen i n the left lingula and left lower lobe. No architectural distortion. Lung Nodules: None. Mediastinum and Rosio: No dominant adenopathy or fluid collection. The esophagus is unremarkable.There is a small hiatal hernia. Thyroid gland: Unremarkable. Lymph nodes: Unremarkable. Pleura: No effusion or pneumothorax. Heart: The heart is not dilated. Mild coronary artery calcification is present. No pericardial effus ion. Aorta: Thoracic aorta non-dilated.Atherosclerosis is present. Upper abdomen: Unremarkable. Soft Tissues: Unremarkable. Bones: Within normal limits for the patient's age. IMPRESSION: 1. No pulmonary nodules. 2. Ground-glass opacities in the left lingula and left lower lobe. Differential considerations inclu de atelectasis, pneumonitis, small airways infection/inflammation or possible edema. Please correlat e clinically. Lung RADS Cat 1S - Negative: No nodules and definitely benign nodules. Other: Clinically Significant or Potentially Clinically Significant Findings (non lung cancer) Lung-RADS 1.0 CATEGORIES: Category 0 - Prior chest CT exam(s) being located for comparison. Category 1 - Annual screening in 12 months. No nodules or definitely benign nodules. Category 2 - Annual screening in 12 months. Benign appearance. Nodules with low likelihood of becomin g active cancer. Category 3 - 6-month follow-up. Probably benign. Short-term follow-up suggested. Nodules with low lik elihood of becoming active cancer. Category 4A - 3-month follow-up and CT/PET if >8 mm in size. Suspicious finding. Findings which requi re additional testing. Category 4B - Findings which require additional testing and tissue sampling. Suspicious finding. Category 4X - Category 3 or 4 nodules with additional features or imaging findings that increases the suspicion of malignancy. Modifier S- Potentially clinically significant finding. (Non lung cancer) Unexpected findings RADIATION DOSE DELIVERED: 72.58mGy.cm Total DLP 72.58mGy.cmTotal DLP DATA REPOSITORY: All CT scans at this facility are submitted to the National Radiology Data Registry (NRDR) Dose Index Registry (DIR) with the [employer] ([employer]). RADIATION OPTIMIZATION: All CT scans at this facility use at least one of these dose optimization te chniques: automated exposure control; mA and/or kV adjustment per patient size (includes targeted exa ms where dose is matched to clinical indication); or iterative reconstruction.
== END 2023-07-08 01:58 ==
LOC: DI 01:38
PROVIDERS: PCP Student in an Organized Health Care Education/Training Program; Visit Provider Student in an Organized Health Care Education/Training Program
DX: Z13.820 Encounter for screening for osteoporosis (principal); Z12.2 Encounter for screening for malignant neoplasm of respiratory organs; Z87.891 Personal history of nicotine dependence
CPT/HCPCS: 71271; 77080

== ENCOUNTER → 2023-12-03 01:05 | Outpatient (CLI) | payer MEDICARE, MEDICAID, SELFPAY ==
--- NOTE | 2023-12-03 10:08 | DI.RAD_ITS ---
Exam(s) XR SHOULDER LT COMPLETE 2+V EXAM: XR SHOULDER LT COMPLETE 2+V CLINICAL HISTORY: eval joint space, bony path,ARTHRITIS,CALCIFIC TENDINITIS,BURSITIS,IMPINGE. TECHNIQUE: 2D digital imaging was performed. Five views. COMPARISON: CR XR SHOULDER LT COMPLETE 2+V from 02/11/2021 FINDINGS: BONES: No acute fracture is present. No bony destructive lesion is seen. Metallic anchor noted in pr oximal humeral shaft likely related to biceps tendon repair. Prior resection of the distal clavicle. Spurring at the superior humeral head. JOINTS: No dislocation present. Severe narrowing of the glenohumeral joint space, worsening from zhang or. Periarticular spurring and sclerosis. Mild posterior subluxation. SOFT TISSUE: Increasing calcification at the tip of the acromion which could represent tendon or caps ular calcification. IMPRESSION: Severe degenerative changes of the glenohumeral joint. DATA REPOSITORY: RADIATION DOSE DELIVERED:
== END ==
PROVIDERS: PCP Student in an Organized Health Care Education/Training Program; Visit Provider Student in an Organized Health Care Education/Training Program
DX: M19.012 Primary osteoarthritis, left shoulder (principal); Z98.890 Other specified postprocedural states
CPT/HCPCS: 73030

== ENCOUNTER 2024-02-02 04:50 | Outpatient (CLI) | payer MEDICARE, SELFPAY ==
[2024-02-02 12:53] LABS: Anion Gap 6.9 mmol/L (3-11); BUN 18 mg/dL (7-18); CO2 32.1 mmol/L (21.0-32.0); CREATININE 1.1 mg/dL (0.55-1.02); Calcium 9.3 mg/dL (8.5-10.1); Chloride 101 mmol/L (98-107); Estimated GFR 54.06 (mL/min/1.73m2); Glucose 99 mg/dL (74-106); Potassium 4.1 mmol/L (3.5-5.1); Sodium 140 mmol/L (136-145)
[2024-02-02 13:07] LABS: Hemoglobin A1C 5.5 % (<5.7)
== END 2024-02-02 04:51 | disposition home or self-care (01) ==
LOC: LBO 04:50
PROVIDERS: PCP Student in an Organized Health Care Education/Training Program; Visit Provider Student in an Organized Health Care Education/Training Program
DX: I10 Essential (primary) hypertension (principal); R73.09 Other abnormal glucose
CPT/HCPCS: 36415; 80048; 83036

== ENCOUNTER 2024-02-04 08:51 | Outpatient (CLI) | payer MEDICARE, MEDICAID, SELFPAY ==
--- NOTE | 2024-02-04 08:45 | RT.EKG_ITS ---
APPROVED REPORT Exam: Resting ECG Reason for Exam: Pre-op eval for shoulder surgery Patient Location: O HR:61 bpm ECG Measurements Heart Rate 61 AXIS MA 154 P 44 QRSd 95 QRS -27 QT 432 T 24 QTc 435 Conclusion Sinus rhythm...normal P axis, V-rate 50- 99 Borderline left axis deviation...QRS axis (-15,-29) Poor R wave progression
== END 2024-02-04 08:52 | disposition home or self-care (01) ==
LOC: DI.KIM 08:52
PROVIDERS: PCP Student in an Organized Health Care Education/Training Program; Visit Provider Student in an Organized Health Care Education/Training Program
DX: Z01.818 Encounter for other preprocedural examination (principal)
CPT/HCPCS: 93010

== ENCOUNTER 2025-05-29 14:39 | Emergency (ER) | payer MEDICARE, SELFPAY ==
[2025-05-29] VITALS (9 sets, daily range): BP systolic 146–165; BP diastolic 79–89; PULSE 53–72; RESP 18; TEMP 36.3; O2SAT 95–98
--- NOTE | 2025-05-29 14:45 | DI.US_ITS ---
Exam(s) US ABDOMEN LIMITED EXAM: US ABDOMEN LIMITED CLINICAL HISTORY: RUQ abd pain TECHNIQUE: Ultrasound abdomen performed using standard protocol. COMPARISON: CT ABD PELVIS WITH CONTRAST from 08/23/2015 FINDINGS: LIVER: Normal size. Increased echogenicity and decreased through transmission consistent with moderate hepatic steatosis. Focal fatty sparing near the gallbladder fossa. Hepatopetal flow in the portal vein. No focal liver lesions are seen. GALLBLADDER: No evidence of cholelithiasis. No evidence of wall thickening. No pericholecystic fluid identified. GIRALDO'S SIGN: Negative. BILIARY SYSTEM: No intrahepatic or extrahepatic biliary ductal dilation. Right KIDNEY: Kidneys are symmetric in size. No evidence of renal calculi. No evidence of hydronephrosis. No renal mass or cyst identified. PANCREAS: Normal where visualized. ABDOMINAL AORTA AND IVC: Visualized portions normal caliber. ASCITES: None seen. IMPRESSION: Moderate hepatic steatosis. No abnormality of the gallbladder. DATA REPOSITORY:
--- NOTE | 2025-05-29 15:08 | ED.GENADUL_ITS ---
Discharge Plan Disposition Patient Disposition: Home Discharge Details Clinical Impression: Abdominal pain Primary Care Provider: Sierra Salvador ED Provider: Fang Day Home Meds and New Rx's Prescriptions: No Action epinephrine [EpiPen 2-Femi] 0.3 mg/0.3 mL auto-injector 0.3 mg IM ONCE Qty: 2 1RF Rx Instructions: for use if stung by bees lisinopril 5 mg tablet 5 mg PO DAILY Qty: 90 3RF Discharge Instructions Instructions: Abdominal pain Additional Instructions: Your lab work, ultrasound and CT imaging of your abdomen do not reveal any acute abnormality that explains your pain. You do have a hiatal hernia and this may be causing some of your symptoms. I have referred you to general surgery so that you can have follow-up for this symptom and get an EGD HPI General Date/Time Provider Initiated Documentation: 05/29/25 14:56 . Limitations to Documentation: no limitations . Information obtained by: patient . HPI Narrative: 69y F with PMH of anaphylaxis, HTN presents for evaluation of RUQ abddominal pain. symptoms started about 1 week ago. Have been constant. Symptoms are worsened by eating, so she has only been eating minimal amounts. denies fever or vomiting. pain is localized to the RUQ and doesn't radiate. no change in bowel or bladder. Denies prior abdominal surgeries. Related Data Home Medications ?Medication ?Instructions ?Recorded ?Confirmed lisinopril 5 mg tablet 5 mg PO DAILY #90 tabs 09/2105/29/25 epinephrine 0.3 mg/0.3 mL 0.3 mg (0.3 mL) IM ONCE #2 e a 05/29/25 05/29/25 injection, auto-injector (EpiPen 2-Femi) Previous Rx's ?Medication ?Instructions ?Recorded lisinopril 5 mg tablet 5 mg PO DAILY #90 tabs 09/21 epinephrine 0.3 mg/0.3 mL 0.3 mg (0.3 mL) IM ONCE #2 e a 05/29/25 injection, auto-injector (EpiPen 2-Femi) Allergies Allergy/AdvReac Type Severity Reaction Status Date / Time codeine Allergy Severe Facial & Verified 05/29/25 14:45 Oral edema kiwi Allergy Severe Anaphylaxsi Verified 05/29/25 14:45 s morphine Allergy Severe Edema, Verified 05/29/25 14:45 Tremor strawberry Allergy Severe Facial & Verified 05/29/25 14:45 Oral Edema Sulfa (Sulfonamide Allergy Severe Itchy, Verified 05/29/25 14:45 Antibiotics) facial edema Iodine and Iodide Containing Allergy Unknown hives Verified 05/29/25 14:45 Produc Penicillins Allergy Unknown Anaphylaxis Verified 05/29/25 14:45 procaine HCl (From Novocain) Allergy Unknown shakiness Verified 05/29/25 14:45 barium sulfate Allergy Anaphylaxis Verified 05/29/25 14:45 venom-honey bee Allergy anaphylactic Verified 05/29/25 14:45 reaction gabapentin AdvReac Severe VOMITING Verified 05/29/25 14:45 AND SHAKINESS ibuprofen (From Motrin) AdvReac Mild intolerant Verified 05/29/25 14:45 to 800 mg dosing lobster Allergy Severe Facial \T\ Uncoded 05/29/25 14:45 Oral edema salmon Allergy Severe Swelling/Ed Uncoded 05/29/25 14:45 sydni cheetah Allergy Unknown Anaphylaxsi Uncoded 05/29/25 14:45 s egg albumin AdvReac Severe hives Uncoded 05/29/25 14:45 General Stated Complaint: Abd Prob MOR: 3 Exam Narrative Exam Narrative: Review of Systems: All systems reviewed & are unremarkable except as noted in HPI and below Well-developed, no acute distress NCAT PERRL, normal conjunctiva RRR Unlabored respiratory effort clear bilaterally, Nondistended abdomen soft, right upper quadrant and epigastric tenderness, no guarding, Extremities w/o edema No rashes or lesions. no focal neurologic deficits Appropriate mood and affect Course Vital Signs Vital signs: Vital Signs Temperature 36.3 C L 05/29/25 14:40 Pulse 72 05/29/25 14:40 Respiratory Rate 18 05/29/25 14:40 Blood Pressure 165/83 H 05/29/25 14:40 Pulse Oximetry 98 05/29/25 14:40 Temperature 36.3 C L 05/29/25 14:40 Temperature Source Oral 05/29/25 14:40 Pulse 72 05/29/25 14:40 Respiratory Rate 18 05/29/25 14:40 Blood Pressure 165/83 H 05/29/25 14:40 Pulse Oximetry 98 05/29/25 14:40 Oxygen Delivery Method Room Air 05/29/25 14:40 Oxygen Flow Rate 0 05/29/25 14:40 Pain Level 7 05/29/25 14:40 Medical Decision Making Emergent evaluation of right upper quadrant and epigastric tenderness. Initial differential includes gastritis, cholecystitis, pancreatitis. Symptoms have been ongoing for a week patient is not having any peritoneal symptoms fever or tachycardia concerning for an underlying infectious etiology. She is not having vomiting but has had poor appetite. Was sent from her primary care provider to be further evaluated. Initial plan for this patient is lab work and right upper quadrant ultrasound to evaluate Lab work reviewed, no leukocytosis or anemia, no electrolyte derangement. LFTs and T. bili are all within normal limits. The lipase is not elevated to suggest pancreatitis. She received a right upper quadrant ultrasound and this did not reveal an acute abnormality. She was then sent for CT imaging to further evaluate the rest of her abdomen considering her tenderness on exam. The CT scan did demonstrate a hiatal hernia, but no other acute abnormalities that may explain her symptoms. On reevaluation, patient was updated on her findings. She was referred to general surgery for follow-up of this pain and possible EGD if her symptoms continue. Return precautions advised. PFSH All Active Problems (Updated 05/29/25 @ 18:28 by Fang Day MD) Abdominal pain (Acute) Abdominal pain (Acute) Achilles tendon pain (Acute) both Osteopenia of lumbar spine (Acute) DEXA, 06/2023 Osteoarthritis of left shoulder (Acute 01/13/24) [place]16/24, [place] At risk for osteoporosis (Acute) Osteopenia per DEXA, 06/2023.. Hx smkg, GI/IBS/Gavascon, Post-menopausal Hearing loss (Acute) L>>R Stress due to illness of family member (Acute) with newly unctlld DM; SGLT2 started (06/2021) .. High risk CVD .. Hx PNA w/ (+) CXR, [ ] CT Unspecified injury of right Achilles tendon, initial encounter (Acute 01/29/21) [facility]- partial rupture, cam boot Other hammer toe(s) (acquired), right foot (Acute 01/29/21) Second toe right foot [facility]- Budin Splint Other specified joint disorders, right ankle and foot (Acute 01/29/21) Predislocation syndrome of metatarsophalangeal joint of right foot [facility] Abdominal bloating (Acute) 06/27 is 3rd day of uncontrollable belching and bloating .. Hx eating unusually heavy food. Trial simethicone. Left carpal tunnel syndrome (Acute) Arthritis of left shoulder region (Acute) Calcific tendinitis of left shoulder (Acute) Tendinopathy of left biceps (Acute) Arthrosis of left acromioclavicular joint (Acute) Bursitis of left shoulder (Acute) Impingement syndrome of left shoulder (Acute) Near syncope (Acute) Left shoulder pain (Chronic) S/[place]ator [place] [facility] [place] [facility] [place] (04/2020) w/ debridement. DJD (degenerative joint disease) of cervical spine (Acute 10/16/14) Mild cord compression on MRI FH: breast cancer (Acute 08/10/13) Fatigue (Acute 08/10/13) Hand joint pain (Acute 10/03/13) OA vs. RA; hand x-rays 09/2013 Rheum consult 01/18/2014: [place]. Re[place] [facility] Inflam erosive arthritis vs. Psoriatic arthritis Irritable colon (Acute 10/03/13) Diarrhea-predominant; stress-induced Medical History (Updated 05/29/25 @ 18:28 by Fang Day MD) Nasal polyps Supraventricular tachycardia with a syncopal episode x1 .. Palp since then w/o issue .. 04/2023 Premature atrial contractions per [facility] post near-syncopal episode .. Showed sinus, mean HR 62 bpm. Showed 9 runs of premature atrial contractions...longest 13 beats in length (and asymptomatic).. Pt triggers correlated to atrial and ventricular ectopic beats. Dec 2009, ordering longer monitoring period via [employer]. Surgical History Status post left rotator cuff repair (~11/2014) EGD/COLONOSCOPY (09/27/15) DR.CHRIS WILLIS Family History Mother No problems noted. Father No problems noted. Social History Smoking/Tobacco Use Status: Former Tobacco Use Quit Date: 11/29/81 Smoking risk assessment performed?: Yes Alcohol Intake: never Drug use: Never Substance use type: does not use Housing: house Current gender identity: female What type of physical activity do you participate in: occasional exercise and other Details: shoveling Do you feel safe at home: Yes Do you feel safe in your relationship?: Yes
[2025-05-29] MEDS: Ondansetron 4 MG/2 ML VIAL IVP (15:11)
[2025-05-29] MEDS: Ketorolac 15 MG/ML VIAL 10 MG IVP (15:11)
[2025-05-29 15:21] LABS: Abs Immature Grans 0.01 10^3/uL (0.0-0.06); HCT 39.5 % (36.0-46.0); HGB 13.4 g/dL (11.2-15.7); Immature Grans % 0.2 %; MCH 31.2 pg (27.0-33.0); MCHC 33.9 % (32.0-36.0); MCV 92 fL (80-95); MPV 9.4 fL (8.0-11.0); Platelet Count 221 10^3/uL (130-400); RBC 4.29 10^6/uL (3.93-5.22); RDW 12.1 % (11.7-14.6); RDW-SD 41.1 fL; WBC 5.74 10^3/uL (4.4-10.8)
[2025-05-29 15:38] LABS: ALT 28 U/L (14-59); AST 22 U/L (15-37); Albumin 4.2 g/dL (3.4-5.0); Alkaline Phosphatase 81 U/L (46-116); Anion Gap 7.4 mmol/L (3-11); BUN 22 mg/dL (7-18); Bilirubin, Total 0.6 mg/dL (0.2-1.0); CO2 29.6 mmol/L (21.0-32.0); Calcium 9.2 mg/dL (8.5-10.1); Chloride 102 mmol/L (98-107); Estimated GFR 68.35 (mL/min/1.73m2); Glucose 104 mg/dL (74-106); Lipase 24 U/L (<78); Magnesium 2.2 mg/dL (1.8-2.4); Potassium 3.8 mmol/L (3.5-5.1); Sodium 139 mmol/L (136-145); Total Protein 8.0 g/dL (6.4-8.2)
--- NOTE | 2025-05-29 16:15 | DI.CT_ITS ---
Exam(s) CT ABDOMEN PELVIS W EXAM: CT ABDOMEN PELVIS W CLINICAL HISTORY: RUQ, EPIGASTRIC PAIN NL US. TECHNIQUE: Imaging Protocol: Axial computed tomography images with coronal and sagittal reformatted images were created and reviewed CONTRAST MATERIAL: Intravenous: Omnipaque 350 Contrast volume:100 ml Oral: no COMPARISON: CT CT CHEST LUNG CANCER SCREEN from 07/08/2023 FINDINGS: ABDOMEN and PELVIS: Lung Bases: No acute findings. Interstitial changes greater at the left lung base. Small hiatal hernia. Liver: Normal size. Mild hepatic steatosis. No suspicious mass. Gallbladder and biliary tract: No radiodense calculus. No wall thickening or pericholecystic fluid. No biliary dilation. Pancreas: Normal density. No abnormal calcifications or inflammatory process. No evidence of mass. Spleen: Normal. Kidneys: Normal size, contour and axis. No radiodense stones. No obstructive uropathy. No suspicious masses seen. Adrenal glands: No masses seen. Vasculature: Abdominal aorta non-dilated. Soft tissues: Tiny amount of fat at the umbilicus. Bladder: No gross wall thickening. No calculi.No focal mass. Bowel: Small hiatal hernia. No obstruction. No bowel wall thickening. Appendix normal.Mild sigmoid diverticulosis. No evidence of diverticulitis. Normal quantity of stool. Peritoneal cavity: No ascites. No focal collection. No mesenteric inflammatory response. No free air. Bones: Unremarkable for age. Reproductive organs: Hysterectomy. Lymph nodes: No pathologically enlarged lymph nodes. IMPRESSION:: No acute abnormality in the abdomen or pelvis. Small hiatal hernia. Interstitial lung disease greater at the left lung base. The preliminary [facility] report was reviewed. RADIATION DOSE DELIVERED: 479.5mGy.cm Total DLP DATA REPOSITORY: All CT scans at this facility are submitted to the National Radiology Data Registry (NRDR) Dose Index Registry (DIR) with the [employer] (A[employer]). RADIATION OPTIMIZATION: All CT scans at this facility use at least one of these dose optimization techniques: automated exposure control; mA and/or kV adjustment per patient size (includes targeted exams where dose is matched to clinical indication); or iterative reconstruction.
[2025-05-29] MEDS: Normal Saline - Diluent 50 ML VIAL IJ (17:07)
[2025-05-29] MEDS: Omnipaque 350 MG/ML 100 ML BTL IJ (17:07)
--- NOTE | 2025-05-29 18:09 | DI.[facility]_ITS ---
PROCEDURE INFORMATION: Exam: CT Abdomen And Pelvis With Contrast Exam date and time: 05/29/2025 4:58 PM Age: 69 years old Clinical indication: Other: Ruq, epigastric pain nl US TECHNIQUE: Imaging protocol: Computed tomography of the abdomen and pelvis with contrast. Contrast material: OMNI 350; Contrast volume: 75 ml; Contrast route: INTRAVENOUS (IV); COMPARISON: US ABDOMEN LIMITED 05/29/2025 3:10 PM FINDINGS: Lungs: There are patchy regions of predominantly subpleural ground-glass and reticular opacity with regions of subpleural lines within the lung bases, [id number], suggesting mild interstitial fibrosis. Heart: Heart size is near the upper limits of normal. No pericardial effusion is identified. Diaphragm: There is a small sliding hiatal hernia. The visualized lower esophagus appears unremarkable. Liver: Normal. No mass. Gallbladder and biliary ducts: Normal. No calcified stones. No ductal dilation. Pancreas: The pancreas is moderately atrophic but appears otherwise unremarkable without focal lesion or evidence of acute inflammation. Spleen: Normal. No splenomegaly. Adrenal glands: Normal. No mass. Kidneys and ureters: Normal. No hydronephrosis. Stomach and bowel: There is no evidence of small or large bowel inflammation. There is no evidence for bowel obstruction. Appendix: The appendix is well-visualized and appears normal. Intraperitoneal space: There is no evidence of free intraperitoneal fluid. There is no free intraperitoneal air. Vasculature: The aorta and iliac arteries demonstrate mild atherosclerotic calcification without aneurysm formation. Lymph nodes: Unremarkable. No enlarged lymph nodes. Urinary bladder: Unremarkable as visualized. Reproductive: There has been a hysterectomy. Bones/joints: There is [id number] disc space narrowing with endplate spurring at L5-S1 consistent with [id number] degenerative disc disease. There are more mild degenerative changes at multiple more superior levels. There is minimal anterolisthesis of L4 on L5, likely chronic and degenerative. No acute fractures are identified. Soft tissues: There is a 1.2 x 0.9 cm fat containing umbilical hernia. IMPRESSION: 1. No acute process within the abdomen or pelvis identified. 2. Small sliding hiatal hernia. 3. Findings of mild interstitial pulmonary fibrosis within the lung bases, as described above. Recommend clinical correlation. 4. Small fat containing umbilical hernia. 5. Status post hysterectomy. Dictated and Authenticated by: Neal Dykes MD. Orderin Barb Mccallum MD
== END 2025-05-29 18:47 | disposition home or self-care (01) ==
PROVIDERS: Emergency Provider Emergency Medicine; PCP Nurse Practitioner Family
DX: R10.11 Right upper quadrant pain (principal); K44.9 Diaphragmatic hernia without obstruction or gangrene; I10 Essential (primary) hypertension
CPT/HCPCS: 99284; 99285; 96374; 96375; 80053; 83690; 74177; 76705; 83735; 85025; J1885; J2405; J3490

== ENCOUNTER 2025-08-08 10:10 | Outpatient (REF) | payer MEDICARE, SELFPAY ==
[2025-08-08 17:33] LABS: Glucose Negative (Negative)
[2025-08-08 18:05] LABS: RBC 20-50 HPF (0-2); WBC >50 HPF (0-5)
== END 2025-08-08 10:11 | disposition home or self-care (01) ==
LOC: LBN 10:10
PROVIDERS: PCP Nurse Practitioner Family
DX: R30.0 Dysuria (principal)
CPT/HCPCS: 87077; 81003; 81015; 87086; 87186

== ENCOUNTER 2025-11-06 14:01 | Outpatient (REF) | payer MEDICARE, SELFPAY | END 2025-11-06 14:02 | disposition home or self-care (01) | LOC: LBN 14:01 | PROVIDERS: PCP Nurse Practitioner Family; Visit Provider Family Medicine | DX: N39.0 Urinary tract infection, site not specified (principal) | CPT/HCPCS: 87077; 87086; 87186 ==

== ENCOUNTER → 2025-11-20 11:21 | Outpatient (CLI) | payer MEDICARE, SELFPAY ==
--- NOTE | 2025-11-20 11:00 | DI.RAD_ITS ---
Exam(s) XR CHEST 2V PA LATERAL EXAM: XR CHEST 2V PA LATERAL CLINICAL HISTORY: Assess for pneumonia, RHONCHI LT LUNG BASE, R09.89. TECHNIQUE: 2D digital imaging was performed. COMPARISON: CR XR CHEST 2V PA LATERAL from 01/10/2020 FINDINGS: 2 views: Heart size is upper normal. The mediastinum is not widened. There increased interstitial markings throughout both lung bustos. There also appears to be probable bronchiectasis in the left lower lobe. No obvious pleural effusions. There is no left shoulder reverse prosthesis and. IMPRESSION: Increased interstitial markings throughout both lung bustos and probable bronchiectasisin the left lower lobe. Interstitial pulmonary edema is a consideration as well as infectious etiology. There are no pleural effusions. DATA REPOSITORY: RADIATION DOSE DELIVERED:
== END ==
LOC: DI 11:22
PROVIDERS: PCP Nurse Practitioner Family
DX: R09.89 Other specified symptoms and signs involving the circulatory and respiratory systems (principal)
CPT/HCPCS: 71046